=== PATIENT | female | born 1975 | race Caucasian/White ===

== ENCOUNTER 2018-02-09 19:21 | Emergency (ER) | payer OTHER ==
[~2018-02-09] VITALS: Ht 165.1 cm; Wt 89.8 kg
[2018-02-09] MEDS ORDERED: PROZAC20 MG PO (19:34)
[2018-02-09] MEDS ORDERED: PREDNISONE 10 M10 MG PO (19:34)
[2018-02-09] MEDS ORDERED: MELOXICAM15 MG PO (19:34)
[2018-02-09] MEDS ORDERED: KLONOPIN0.5 MG PO (19:35)
[2018-02-09] MEDS ORDERED: ACETAMINOPHEN-1 EAC1 PO (19:35)
[2018-02-09] MEDS ORDERED: TRAMADOL 50 MG50 MG PO (19:35)
[2018-02-09] MEDS ORDERED: HYDROCHLOROTHIA25 M2 PO (19:35)
[2018-02-09] MEDS ORDERED: CYCLOBENZAPRINE5 MG PO (19:36)
[2018-02-09] MEDS ORDERED: HYDROCODONE-AP1 EAC6 PO (20:09)
[2018-02-09 20:23] VITALS: BP 179/89
== END 2018-02-09 20:24 | disposition home or self-care (01) ==
LOC: M.ERS 19:21
DX: M25.472 Effusion, left ankle (principal); M06.9 Rheumatoid arthritis, unspecified

== ENCOUNTER 2018-04-28 17:42 | Emergency (ER) | payer OTHER ==
[~2018-04-28] VITALS: Ht 167.6 cm; Wt 93.1 kg
[~2018-04-28 17:42] MED LIST: ACETAMINOPHEN-1 EAC1 PO; CYCLOBENZAPRINE5 MG PO; HYDROCHLOROTHIA25 M2 PO; HYDROCODONE-AP1 EAC6 PO; KLONOPIN0.5 MG PO; MELOXICAM15 MG PO; PREDNISONE 10 M10 MG PO; PROZAC20 MG PO; TRAMADOL 50 MG50 MG PO
[2018-04-28] MEDS ORDERED: NORCO 5-325 TA1 EACH PO (18:12)
[2018-04-28 18:21] VITALS: BP 123/67
== END 2018-04-28 18:29 | disposition home or self-care (01) ==
LOC: M.ERS 17:42
DX: M25.572 Pain in left ankle and joints of left foot (principal); M79.642 Pain in left hand; M79.641 Pain in right hand; R22.31 Localized swelling, mass and lump, right upper limb; R22.32 Localized swelling, mass and lump, left upper limb; R22.42 Localized swelling, mass and lump, left lower limb; M06.9 Rheumatoid arthritis, unspecified

== ENCOUNTER 2018-06-28 23:02 | Emergency (ER) | payer OTHER ==
[~2018-06-28] VITALS: Ht 167.6 cm; Wt 88.9 kg
[~2018-06-28 23:02] MED LIST changes: +NORCO 5-325 TA1 EACH PO
[2018-06-28 23:06] VITALS: BP 156/85
[2018-06-28] MEDS ORDERED: ZESTRIL10 MG (23:09)
[2018-06-28] MEDS ORDERED: PREDNISONE 10 M10 MG (23:10)
[2018-06-28] MEDS ORDERED: CLEOCIN HCL150 MG PO (23:32)
[2018-06-28] MEDS ORDERED: ACETAMINOPHEN-1 EAC1 PO (23:32)
== END 2018-06-28 23:41 | disposition home or self-care (01) ==
LOC: M.ERS 23:02
DX: K04.7 Periapical abscess without sinus (principal)

== ENCOUNTER 2018-07-21 16:12 | Emergency (ER) | payer OTHER ==
[~2018-07-21] VITALS: Ht 165.1 cm; Wt 89.4 kg
[~2018-07-21 16:12] MED LIST changes: +CLEOCIN HCL150 MG PO; +PREDNISONE 10 M10 MG; +ZESTRIL10 MG
[2018-07-21] MEDS ORDERED: PREDNISONE 10 M10 M1 PO (16:39)
[2018-07-21] MEDS ORDERED: VENTOLIN HFA 1818 GM INH (16:39)
[2018-07-21 17:27] VITALS: BP 171/93
== END 2018-07-21 17:27 | disposition home or self-care (01) ==
LOC: M.ERS 16:12
DX: R05 Cough (principal); G89.29 Other chronic pain; Z76.0 Encounter for issue of repeat prescription; M06.9 Rheumatoid arthritis, unspecified

== ENCOUNTER 2018-09-09 17:34 | Emergency (ER) | payer OTHER ==
[~2018-09-09] VITALS: Ht 165.1 cm; Wt 88.9 kg
[~2018-09-09 17:34] MED LIST changes: +PREDNISONE 10 M10 M1 PO; +VENTOLIN HFA 1818 GM INH
[2018-09-09] MEDS ORDERED: ACETAMINOPHEN-1 EAC2 PO (17:53)
[2018-09-09] MEDS ORDERED: NORCO 5-325 TA1 EACH PO (18:23)
[2018-09-09] MEDS ORDERED: PREDNISONE 10 M10 MG PO (18:23)
[2018-09-09] MEDS ORDERED: ONDANSETRON HCL4 M2 PO (18:52)
[2018-09-09] MEDS ORDERED: PHENERGAN 25 MG25 M1 PO (18:54)
[2018-09-09 19:25] VITALS: BP 157/97
== END 2018-09-09 19:25 | disposition home or self-care (01) ==
LOC: M.ERS 17:34
DX: M25.462 Effusion, left knee (principal)

== ENCOUNTER 2018-10-26 20:30 | Emergency (ER) | payer OTHER, MEDICAID ==
[~2018-10-26] VITALS: Ht 167.6 cm; Wt 89.4 kg
[~2018-10-26 20:30] MED LIST changes: +ACETAMINOPHEN-1 EAC2 PO; +ONDANSETRON HCL4 M2 PO; +PHENERGAN 25 MG25 M1 PO
[2018-10-26] MEDS ORDERED: MOBIC15 MG (20:35)
[2018-10-26] MEDS ORDERED: LISINOPRIL20 MG (20:35)
[2018-10-26] MEDS ORDERED: HYDROCHLOROTH12.5 M1 (20:35)
[2018-10-26] MEDS ORDERED: ACETAMINOPHEN-1 EAC2 (20:36)
[2018-10-26] MEDS ORDERED: IRON (20:36)
[2018-10-26] MEDS ORDERED: PREDNISONE 10 M10 MG (20:36)
[2018-10-26] MEDS ORDERED: PROZAC PO (20:36)
[2018-10-26] MEDS ORDERED: NORCO 7.5-3251 EACH PO (21:10)
[2018-10-26 21:17] VITALS: BP 137/78
== END 2018-10-26 21:18 | disposition home or self-care (01) ==
LOC: M.ERS 20:30
DX: M54.5 Low back pain (principal); Z76.0 Encounter for issue of repeat prescription; M06.9 Rheumatoid arthritis, unspecified; F17.210 Nicotine dependence, cigarettes, uncomplicated; Z98.890 Other specified postprocedural states; Z88.8 Allergy status to other drugs, medicaments and biological substances

== ENCOUNTER 2019-03-18 19:10 | Emergency (ER) | payer OTHER, MEDICAID ==
[~2019-03-18] VITALS: Ht 167.6 cm; Wt 95.3 kg
[~2019-03-18 19:10] MED LIST changes: +ACETAMINOPHEN-1 EAC2; +HYDROCHLOROTH12.5 M1; +IRON325 PO; +LISINOPRIL20 MG; +MOBIC15 MG; +NORCO 7.5-3251 EACH PO; +PROZAC PO
[2019-03-18] MEDS ORDERED: LIORESAL 10 MG10 MG PO (19:23)
[2019-03-18] MEDS ORDERED: METHOTREXATE 1 G1 GM INJECTION (19:24)
[2019-03-18] MEDS ORDERED: HUMIRA10 MG/0.1 SUBQ (19:25)
[2019-03-18] MEDS ORDERED: FOLIC ACID1 MG PO (19:25)
[2019-03-18] MEDS ORDERED: CLINDAMYCIN HC300 MG PO (19:44)
[2019-03-18] MEDS ORDERED: IBUPROFEN 800800 M1 PO (19:44)
[2019-03-18] MEDS ORDERED: NORCO 5-325 TA1 EAC1 PO (19:44)
[2019-03-18 20:00] VITALS: BP 127/69
== END 2019-03-18 20:01 | disposition home or self-care (01) ==
LOC: M.ERS 19:10
DX: K05.00 Acute gingivitis, plaque induced (principal); M06.9 Rheumatoid arthritis, unspecified; G89.18 Other acute postprocedural pain; F17.210 Nicotine dependence, cigarettes, uncomplicated; Z98.51 Tubal ligation status; Z88.8 Allergy status to other drugs, medicaments and biological substances

== ENCOUNTER 2020-06-07 17:59 | Emergency (ER) | payer OTHER, MEDICAID ==
[~2020-06-07] VITALS: Ht 160 cm; Wt 81.7 kg
[~2020-06-07 17:59] MED LIST changes: +CLINDAMYCIN HC300 MG PO; +FOLIC ACID1 MG PO; +HUMIRA10 MG/0.1 SUBQ; +IBUPROFEN 800800 M1 PO; +LIORESAL 10 MG10 MG PO; +METHOTREXATE 1 G1 GM INJECTION; +NORCO 5-325 TA1 EAC1 PO
[2020-06-07] MEDS ORDERED: PLAQUENIL200 MG PO (18:11)
[2020-06-07] MEDS ORDERED: KLONOPIN0.5 MG PO (18:11)
[2020-06-07] MEDS ORDERED: MUPIROCIN1 GM TOP (18:38)
[2020-06-07] MEDS ORDERED: KEFLEX500 M1 PO (18:38)
[2020-06-07 18:44] VITALS: BP 138/54
== END 2020-06-07 18:45 | disposition home or self-care (01) ==
LOC: M.ERS 17:59
DX: L02.415 Cutaneous abscess of right lower limb (principal); I10 Essential (primary) hypertension; M79.7 Fibromyalgia; M06.9 Rheumatoid arthritis, unspecified; F17.210 Nicotine dependence, cigarettes, uncomplicated; Z96.651 Presence of right artificial knee joint; Z88.8 Allergy status to other drugs, medicaments and biological substances; Z98.51 Tubal ligation status

== ENCOUNTER 2020-06-20 20:09 | Emergency (ER) | payer OTHER, MEDICAID ==
[~2020-06-20] VITALS: Ht 167.6 cm; Wt 95.3 kg
[~2020-06-20 20:09] MED LIST changes: +KEFLEX500 M1 PO; +MUPIROCIN1 GM TOP; +PLAQUENIL200 MG PO
[2020-06-20] MEDS ORDERED: KEVZARA150 MG/1.2 SUBQ (20:21)
[2020-06-20] MEDS ORDERED: LYRICA200 MG PO (20:22)
[2020-06-20] MEDS ORDERED: SARAFEM20 MG PO (20:22)
[2020-06-20] MEDS ORDERED: KEFLEX500 M1 PO (21:17)
[2020-06-20] MEDS ORDERED: PERCOCET 5-3251 EACH PO (21:17)
[2020-06-20] MEDS ORDERED: BACTRIM DS TAB1 EACH PO (21:17)
[2020-06-20 21:34] VITALS: BP 89/62
== END 2020-06-20 21:30 | disposition home or self-care (01) ==
LOC: M.ERS 20:09
DX: G89.18 Other acute postprocedural pain (principal); M79.7 Fibromyalgia; I10 Essential (primary) hypertension; F17.210 Nicotine dependence, cigarettes, uncomplicated; Z79.899 Other long term (current) drug therapy; Z88.8 Allergy status to other drugs, medicaments and biological substances